=== PATIENT | female | born 1995 | race African-American/Black ===

== ENCOUNTER 2016-10-26 19:41 | Emergency (ER) | payer SELFPAY ==
[2016-10-26] MEDS ORDERED: Ondansetron INJ* 2 MG/ML VIAL IV ONE (19:44)
[2016-10-26] MEDS ORDERED: NS 0.9% 1000 ML* 1,000 ML IV ONE (19:44)
--- NOTE | 2016-10-26 20:11 | ED ---
Derrick Bradley Rebecca, scribed for Davy Okeefe MD on 10/26/16 at 1956 . - HPI Summary HPI Summary: Pt is a 21 y/o F BIBA who presents to ED c/o nausea and hematemesis. Sx have been present for the last week, worsening today when she began to taste the blood whereas she couldn't previously. Sx aggravated and alleviated by nothing. Has an US last Friday that confirmed her with twins of which she is 13 weeks along. Has an [facility] [facility] [employer] appointment in 2 days. - History of Current Complaint Stated Complaint: VOMITTING BLOOD Hx Obtained From: Patient Chief Complaint: Other: - Hematemesis Onset/Duration: Started Weeks Ago - 1 week, Still Present Timing: Intermittent Current Severity: None Pain Intensity: 0 Location of Pain: None Character: None Aggravating Factors: Nothing Alleviating Factors: Nothing Associated Signs and Symptoms: Positive: Nausea - Allergies/Home Medications Allergies/Adverse Reactions: Allergies Allergy/AdvReac Type Severity Reaction Status Date / Time Coconut Oil Allergy Swelling Verified 10/26/16 20:15 Of Face,Lips,& Throat PMH/Surg Hx/FS Hx/Imm Hx Respiratory History: Reports: Hx Asthma Psychiatric History: Reports: Hx Depression - Immunization History Date of Tetanus Vaccine: unk Date of Influenza Vaccine: utd Infectious Disease History: No Infectious Disease History: Denies: Traveled Outside the [place] in Last 30 Days - Family History Known Family History: Positive: Hypertension - Social History Alcohol Use: None Substance Use Type: Reports: None Smoking Status (MU): Never Smoked Tobacco Review of Systems Negative: Fever Positive: Nausea, Other - Hematemesis All Other Systems Reviewed And Are Negative: Yes Physical Exam - Physical Exam Triage Information Reviewed: Yes Vital Signs On Initial Exam: Initial Vitals Temp Pulse Resp BP Pulse Ox 99.1 F 72 18 111/72 100 10/26/16 20:09 10/26/16 20:09 10/26/16 20:09 10/26/16 20:09 10/26/16 20:09 Vital Signs Reviewed: Yes Appearance: Positive: Well-Appearing, No Pain Distress Skin: Positive: Warm Head/Face: Positive: Normal Head/Face Inspection Eyes: Positive: DANNY ENT: Positive: Hearing grossly normal Neck: Positive: Supple Respiratory/Lung Sounds: Positive: Clear to Auscultation, Breath Sounds Present Cardiovascular: Positive: RRR Abdomen Description: Positive: Nontender, Soft. Negative: CVA Tenderness (R), CVA Tenderness (L) Bowel Sounds: Positive: Present Musculoskeletal: Positive: Strength/ROM Intact Neurological: Positive: Alert, Oriented to Person Place, Time Psychiatric: Positive: Affect/Mood Appropriate Diagnostics - Laboratory Result Diagrams: 10/26/16 20:50 10/26/16 20:50 Lab Statement: Any lab studies that have been ordered have been reviewed, and results considered in the medical decision making process. Re-Evaluation - Re-Evaluation First Eval Re-Evaluation Time: 21:57 Change: Improved Comment: Sx have improved, can tolerate PO. Course/Dx - Course Assessment/Plan: Pt is a 21 y/o F BIBA who presents to ED c/o nausea and hematemesis. Sx have been present for the last week, worsening today when she began to taste the blood whereas she couldn't previously. Sx aggravated and alleviated by nothing. Has an US last Friday that confirmed her with twins of which she is 13 weeks along. Has an [facility] [facility] [employer] appointment in 2 days. In the ED course, the pt was administered Zofran and fluids which improved sx. She will be D/C to home with Dx of hyperemesis gravidarum, Rx for Zofran and a follow up with her PCP. She understands and agrees. - Diagnoses Provider Diagnoses: Hyperemesis gravidarum Discharge - Discharge Plan Condition: Improved Disposition: HOME Prescriptions: Ondansetron TAB* [Zofran 4 MG Tab*] 4 mg PO Q6H #14 tab Patient Education Materials: Hyperemesis Gravidarum (ED) Referrals: Non Staff,Doctor [Primary Care Provider] - 3 Days Additional Instructions: Return to the ED for any returning or worsening symptoms. The documentation as recorded by the Derrick ohara Rebecca accurately reflects the service I personally performed and the decisions made by me, Davy Okeefe MD.
[2016-10-26 20:59] LABS: Add Diff/Slide Review? Slide Review Added; Comments Flag Yes; Hematocrit 33 % (35-47); Hemoglobin 10.7 g/dl (12.0-16.0); Mean Corpuscular HGB Conc 33 g/dl (31-36); Mean Corpuscular Hemoglobin 24 pg (27-31); Mean Corpuscular Volume 73 fL (80-97); Mean Platelet Volume 9 um3 (7.4-10.4); Red Blood Count 4.49 10^6/ul (4.0-5.4); Red Cell Distribution Width 15 % (10.5-15); White Blood Count 9.5 10^3/ul (3.5-10.8)
[2016-10-26 21:05] LABS: Urine Bacteria Absent (Absent); Urine Bilirubin Negative (Negative); Urine Glucose Negative (Negative); Urine Nitrite Negative (Negative)
[2016-10-26 21:14] LABS: ALT 9 U/L (7-52); AST 11 U/L (13-39); Albumin 3.3 g/dL (3.2-5.2); Alkaline Phosphatase 60 U/L (34-104); Anion Gap 7 mmol/L (2-11); BUN/Creatinine Ratio 10.7 (8-20); Blood Urea Nitrogen 6 mg/dL (6-24); CO2 Carbon Dioxide 24 mmol/L (22-32); Calcium 9.2 mg/dL (8.6-10.3); Chloride 103 mmol/L (101-111); EGFR African American 177.5 (>60); Globulin 3.6 g/dL (2-4); Glucose 84 mg/dL (70-100); Lipase 42 U/L (11.0-82.0); Magnesium 1.7 mg/dL (1.9-2.7); Potassium 3.3 mmol/L (3.5-5.0); Sodium 134 mmol/L (133-145); Total Protein 6.9 g/dL (6.4-8.9)
[2016-10-26 22:26] VITALS: BP 107/63
== END 2016-10-26 22:34 | disposition home or self-care (01) ==
LOC: ED 19:41
DX: O21.0 Mild hyperemesis gravidarum (principal); Z3A.13 13 weeks gestation of pregnancy; O99.341 Other mental disorders complicating pregnancy, first trimester; F32.9 Major depressive disorder, single episode, unspecified
CPT/HCPCS: 36415; 80053; 81003; 81015; 83605; 83690; 83735; 84702; 85025; 87086; 96360; 96374; 99282; J2405

== ENCOUNTER 2016-10-29 17:54 | Emergency (ER) | payer SELFPAY ==
[2016-10-29] MEDS ORDERED: Metoclopramide TAB* 10 MG PO ONE ×3 (19:23→20:44)
--- NOTE | 2016-10-29 20:56 | ED ---
- HPI Summary HPI Summary: Patient is a 14 week otherwise healthy F who presents to the ED with nausea/vomiting x 3 months which has been worsening. She notes to a vitamin, but denies other medications. She has been trying to eat and drink but feels she is not getting enough nutrients d/t the vomiting. She notes to vomiting a few times every day. Standing and mobility makes the vomiting worse, coffee seems to make the symptoms better. She was seen in the ED last week and given zofran without relief. She has not tried the BRAT diet. She has follow up to OBGYN in 1 week. She states the N/V is the same in the morning as in the afternoon or evening. She states she felt there was some blood in her vomiting, but EMS had told her likely it was d/t the irritation of the esophagus from so much vomiting. She is unable to quantify the amount, but states she thought there might have been some specks of blood. She denies abdominal pain, back pain or vaginal discharge. She denies chest pain, SOB. - History of Current Complaint Chief Complaint: EDNauseaVomitDiarrh Stated Complaint: 15 WKS PREG/VOMITING BLOOD Time Seen by Provider: 10/29/16 18:46 Hx Obtained From: Patient Chief Complaint: Concern for Embryonic Dem, Other: - nausea and vmiting Timing: Intermittent, Lasting Minutes Severity: Moderate Current Severity: Moderate Pain Intensity: 0 Character: Cramping Associated Signs and Symptoms: Positive: Nausea - Assessment Hx Now: Yes History of Ectopic : No Hx Pelvic Inflammatory Disease: No - Allergies/Home Medications Allergies/Adverse Reactions: Allergies Allergy/AdvReac Type Severity Reaction Status Date / Time Coconut Oil Allergy Swelling Verified 10/26/16 20:15 Of Face,Lips,& Throat PMH/Surg Hx/FS Hx/Imm Hx Previously Healthy: Yes Respiratory History: Reports: Hx Asthma Psychiatric History: Reports: Hx Depression - Immunization History Date of Tetanus Vaccine: unk Date of Influenza Vaccine: utd Hx Pertussis Vaccination: No Immunizations Up to Date: Unable to Obtain/Confirm Infectious Disease History: No Infectious Disease History: Denies: Traveled Outside the [place] in Last 30 Days - Family History Known Family History: Positive: Hypertension - Social History Occupation: Unemployed Lives: With Family Alcohol Use: None Hx Substance Use: No Substance Use Type: Reports: None Hx Tobacco Use: No Smoking Status (MU): Never Smoked Tobacco Review of Systems Constitutional: Negative Eyes: Negative Cardiovascular: Negative Respiratory: Negative Positive: Vomiting, Nausea. Negative: Abdominal Pain, Diarrhea Genitourinary: Negative Positive: no symptoms reported, see HPI. Negative: discharge, incontinence, pain, urgency Musculoskeletal: Negative Neurological: Negative All Other Systems Reviewed And Are Negative: Yes Physical Exam - Physical Exam Triage Information Reviewed: Yes Vital Signs Reviewed: Yes Appearance: Positive: Well-Appearing, Well-Nourished Skin: Positive: Warm, Skin Color Reflects Adequate Perfusion Head/Face: Positive: Normal Head/Face Inspection Eyes: Positive: EOMI, DANNY, Conjunctiva Clear Neck: Positive: Supple, Nontender, No Lymphadenopathy Respiratory/Lung Sounds: Positive: Clear to Auscultation, Breath Sounds Present Cardiovascular: Positive: Normal, RRR, Pulses are Symmetrical in both Upper and Lower Extremities Abdomen Description: Positive: Nontender, Soft Bowel Sounds: Positive: Present Neurological: Positive: Sensory/Motor Intact, Alert, Oriented to Person Place, Time, Speech Normal Psychiatric: Positive: Normal AVPU Assessment: Alert Diagnostics - Vital Signs Vital Signs Temp Pulse Resp BP Pulse Ox 10/29/16 18:07 97.3 F 99 18 113/70 99 10/29/16 17:57 98.8 F 100 14 122/78 99 - Laboratory Lab Statement: Any lab studies that have been ordered have been reviewed, and results considered in the medical decision making process. Course/Dx - Course Course Of Treatment: Patient evaluated for N/V. During her course of treatment , she is given Reglan with relief. She states she has not been getting relief with zofran. She is able to take PO well, and PO challenge was successful with food and drink. Patient feeling better and is discharged home with follow up to her OBGYN. She has normal mucous membranes and no signs of trauma or dehydration. Although she was given fluids upon last visit, provider does not feel this is necessary at this point. Reglan prescribed to home and one dose is dispensed to home. This is a class B medication and considered safe in . No concern for embryonic demise as she does not complain of vaginal bleeding, discharge or abdominal pain. Medications were reveiwed with patient. Encouarged to follow up with OBGYN or return to ED for worsening symptoms. Return precautions given. Patient understands and agrees with plan. Ok for discharge. - Differential Diagnosis/HQI/PQRI: Placenta Abruption, Placenta Previa, Other: - nausea; vomiting; hyperemesis gravidarum - Diagnoses Provider Diagnoses: Nausea/vomiting in Discharge - Discharge Plan Condition: Stable Disposition: HOME Prescriptions: Metoclopramide TAB* [Reglan TAB*] 5 mg PO Q6H #20 tab MDD 4 Patient Education Materials: Metoclopramide (By mouth), Nausea and Vomiting in (ED) Referrals: Non Staff,Doctor [Primary Care Provider] - Additional Instructions: Eat foods which are soothing to the stomach Drink small amounts of fluid as tolerated When able to eat follow BRAT diet: Bananas, rice, applesauce, toast Also, chicken noodle soup, crackers and try to avoid things which are acidic: coffee, tomatoes, lemonade, spicy foods If you feel you are not getting enough fluids, drink gatorade or gingerale
[2016-10-29 22:02] VITALS: BP 130/74
== END 2016-10-29 20:52 | disposition home or self-care (01) ==
LOC: ED 17:54
DX: O21.9 Vomiting of pregnancy, unspecified (principal); Z3A.15 15 weeks gestation of pregnancy
CPT/HCPCS: 99282; A9270-GY

== ENCOUNTER 2016-11-11 12:46 | Emergency (ER) | payer SELFPAY ==
[2016-11-11 13:52] LABS: Hematocrit 31 % (35-47); Hemoglobin 9.9 g/dl (12.0-16.0); Mean Corpuscular HGB Conc 32 g/dl (31-36); Mean Corpuscular Hemoglobin 23 pg (27-31); Mean Platelet Volume 10 um3 (7.4-10.4); Red Blood Count 4.24 10^6/ul (4.0-5.4); Red Cell Distribution Width 15 % (10.5-15); White Blood Count 11.8 10^3/ul (3.5-10.8)
[2016-11-11 13:55] LABS: Comments Flag Yes; Mean Corpuscular Volume 73 fL (80-97)
[2016-11-11 14:18] LABS: Albumin 3.1 g/dL (3.2-5.2); BUN/Creatinine Ratio 13.5 (8-20); Calcium 9.1 mg/dL (8.6-10.3); EGFR African American 193.3 (>60); EGFR Non-African American 150.3 (>60); Globulin 3.5 g/dL (2-4); Potassium 3.3 mmol/L (3.5-5.0); Total Bilirubin 0.3 mg/dL (0.2-1.0); Total Protein 6.6 g/dL (6.4-8.9)
--- NOTE | 2016-11-11 14:32 | RAD ---
Indication: Cramps, bleeding. Real-time sonography of the pelvis and was performed. There are twin intrauterine gestations present. Twin A a is in cephalic presentation. There is a posterior placenta. heart activity noted at 1 60 bpm. Amniotic fluid is within normal limits. The cervix is 3.2 cm. BPD measures 3.4 cm corresponding to gestational age of 16 weeks 4 days. Head circumference measures 12.4 cm corresponding to gestational age of 16 weeks 2 days. Abdominal circumference measures 9.0 cm corresponding to gestational age of 15 weeks 2 days. Femur length measures 2.0 cm corresponding to gestational age of 15 weeks 6 days. Estimated gestational age is 16 weeks 0 days. Estimated weight is 129 g. HC/AC ratio is 1.4. Twin B is in variable presentation. heart activity is noted at 155 bpm. movement is noted. Normal amniotic fluid is noted. BPD measures 3.2 cm corresponding to gestational age of 16 weeks 1 day. Head circumference measures 13.0 cm corresponding to gestational age of 16 weeks 5 days. Abdominal circumference measures 9.5 cm corresponding to gestational age of 15 weeks 5 days. Femur length measures 2.1 cm corresponding to gestational age of 16 weeks 1 day. Estimated gestational age of 16 weeks 2 days. Estimated weight is 140 g. survey is Limited due to early gestational age. No subchorionic hemorrhage is noted. There appears to be a single placenta noted. Thin membrane is noted and this may represent diamniotic monochorionic twins. IMPRESSION: Twin a demonstrates average gestational age of 16 weeks 0 days. Twin B demonstrates a average gestational age of 16 weeks 2 days. Posterior placenta is noted. Thin septation is noted. This may represent diamniotic monochorionic twin.
[2016-11-11 14:35] LABS: Urine Bilirubin Negative (Negative); Urine Glucose Negative (Negative); Urine Nitrite Negative (Negative)
[2016-11-11 14:36] LABS: Urine Bacteria Absent (Absent)
--- NOTE | 2016-11-11 14:39 | RAD ---
INDICATION: Twin at approximately 16 weeks (by external ultrasound). Request for limited evaluation for bleeding and cramping. COMPARISON: None TECHNIQUE: A limited patency evaluation was performed. This was not an anatomic scan. Twin A is the presenting fetus in cephalad location. The placenta is posterior in location. The cardiac activity is 160 beats for minute. There is movement. The heart is believed to be 4 chambered. Amniotic fluid appears normal. The estimated gestational age based on biparietal diameter, head circumference, and also compressed, and femur length corresponds to 16 weeks 4 days, 16 weeks 2 days, 15 weeks 2 days, and 15 weeks 6 days resulting in a composite value of 16 weeks 0 days. Twin B is in variable presentation. There is cardiac activity 155 beats for minute and there is movement. The heart is believed to be 4 chambered. Amniotic fluid is normal. The estimated gestational age based on biparietal diameter, head circumference, abdominal circumference, and femur length corresponds to 16 weeks 1 day, 16 weeks 5 days, 15 weeks 5 days, and 16 weeks 1 day resulting in a composite 5 of 16 weeks 2 days. The placenta is posterior in location. There is a marginal placenta previa. The is believed to be monochorionic diamniotic. The cervix is closed measuring 3.2 cm. FINDINGS: Twin gestation approximately 16 weeks. No sonographic and masses are detected. Suggest a follow-up anatomic cysts scan IMPRESSION: EARLY TWIN INTRAUTERINE GESTATION AT APPROXIMATELY 16 WEEKS. NO SONOGRAPHIC ABNORMALITIES ARE DETECTED.
[2016-11-11 15:46] VITALS: BP 122/60
--- NOTE | 2016-11-11 18:15 | ED ---
Brayan Bradley Angela, scribed for Guy Ferrera MD on 11/11/16 at 1254 . - HPI Summary HPI Summary: This pt is a 21 y/o female, currently 16 weeks with twins, presenting to [facility] c/o vaginal spotting x3 days and abd cramping since this morning at 0200. Pt reports that earlier during this she also had some spotting. She describes her current spotting as light, only when urinating and wiping, with no pads needed. Her abd cramping is mostly located in the lower abd area. Pt's last Ultrasound was 2 weeks ago. Pt states she just relocated from [place], [place] to [place], [place] and has an upcoming appointment at [facility]. LNMP: unsure. - History of Current Complaint Chief Complaint: EDOBProblems Stated Complaint: CRAMPING/15WKS PREG Time Seen by Provider: 11/11/16 12:49 Hx Obtained From: Patient Chief Complaint: Other: - vaginal spotting and abd cramps Onset/Duration: Started Hours Ago - abd cramping, Started Days Ago - spotting Pain Intensity: 0 Location of Pain: Suprapubic Aggravating Factors: Nothing Alleviating Factors: Nothing Associated Signs and Symptoms: Positive: Other: - vaginal spotting and abd cramping. Negative: Back Pain, Fever, Nausea, Urinary Symptoms - Assessment Hx Now: Yes Hx Pelvic Inflammatory Disease: No - Allergies/Home Medications Allergies/Adverse Reactions: Allergies Allergy/AdvReac Type Severity Reaction Status Date / Time Coconut Oil Allergy Swelling Verified 10/26/16 20:15 Of Face,Lips,& Throat PMH/Surg Hx/FS Hx/Imm Hx Endocrine/Hematology History: Denies: Hx Diabetes Cardiovascular History: Denies: Hx Hypertension Respiratory History: Reports: Hx Asthma Psychiatric History: Reports: Hx Depression - Immunization History Date of Tetanus Vaccine: unk Date of Influenza Vaccine: utd Infectious Disease History: No Infectious Disease History: Denies: Traveled Outside the [place] in Last 30 Days - Family History Known Family History: Positive: Hypertension - Social History Alcohol Use: None Hx Substance Use: No Substance Use Type: Reports: None Hx Tobacco Use: No Smoking Status (MU): Never Smoked Tobacco Review of Systems Negative: Fever, Chills Eyes: Negative ENT: Negative Cardiovascular: Negative Respiratory: Negative Positive: Abdominal Pain - abd cramping Positive: other - vaginal spotting Skin: Negative Neurological: Negative All Other Systems Reviewed And Are Negative: Yes Physical Exam - Physical Exam Triage Information Reviewed: Yes Vital Signs On Initial Exam: Initial Vitals Temp Pulse Resp BP Pulse Ox 98.3 F 100 18 121/62 99 11/11/16 12:49 11/11/16 12:49 11/11/16 12:49 11/11/16 12:49 11/11/16 12:49 Appearance: Positive: Well-Appearing, No Pain Distress Skin: Positive: Skin Color Reflects Adequate Perfusion Head/Face: Positive: Normal Head/Face Inspection Eyes: Positive: Normal, EOMI ENT: Positive: Normal ENT inspection Neck: Positive: Nontender Respiratory/Lung Sounds: Positive: Clear to Auscultation, Breath Sounds Present Cardiovascular: Positive: RRR. Negative: Murmur Abdomen Description: Positive: Nontender Musculoskeletal: Positive: Strength/ROM Intact Neurological: Positive: Sensory/Motor Intact, Alert, Oriented to Person Place, Time, CN Intact II-III Psychiatric: Positive: Normal - [place] Coma Scale Eye: 4 - Spontaneous Motor: 6 - Obeys Commands Verbal: 5 - Oriented Coma Scale Total: 15 Diagnostics - Vital Signs Vital Signs Temp Pulse Resp BP Pulse Ox 11/11/16 12:49 98.3 F 100 18 121/62 99 - Laboratory Result Diagrams: 11/11/16 13:34 11/11/16 13:34 Lab Statement: Any lab studies that have been ordered have been reviewed, and results considered in the medical decision making process. - Ultrasound No standard instances Ultrasound Interpretation: No Acute Changes - US Complete IMPRESSION: Twin A demonstrates average gestational age of 16 weeks 0 days. Twin B demonstrates an average gestational age of 16 weeks 2 days. Posterior placenta is noted. Thin septation is noted. This may represent diamniotic monochorionic twin. ED physician has reviewed this radiology report and agrees. Ultrasound Interpretation Completed By: Radiologist - Additional Comments Diagnostic Additional Comments: US Preg Limited IMPRESSION: Early twin intrauterine gestation at approximately 16 weeks. No sonographic abnormalities are detected. ED physician has reviewed this radiology report and agrees. Course/Dx - Course Course Of Treatment: 21 yr female with twin gestations by sono and spotting. DChome to follow up with [facility]ICAL [facility]NAGER. - Diagnoses Provider Diagnoses: Threatened miscarriage Discharge - Discharge Plan Condition: Good Disposition: HOME Patient Education Materials: Threatened Miscarriage (ED) Referrals: Non Staff,Doctor [Primary Care Provider] - Nereyda Kenney MD [Medical Doctor] - The documentation as recorded by the Brayan ohara Angela accurately reflects the service I personally performed and the decisions made by me, Guy Ferrera MD.
== END 2016-11-11 15:45 | disposition home or self-care (01) ==
LOC: ED 12:46
DX: O20.0 Threatened abortion (principal); O30.002 Twin pregnancy, unspecified number of placenta and unspecified number of amniotic sacs, second trimester; O99.342 Other mental disorders complicating pregnancy, second trimester; Z3A.16 16 weeks gestation of pregnancy; F32.9 Major depressive disorder, single episode, unspecified
CPT/HCPCS: 36415; 76815; 76816; 80053; 81003; 81015; 84702; 85025; 86703; 86900; 86901; 87086; 99282